=== PATIENT | male | born 1955 | race Caucasian/White ===

== ENCOUNTER 2018-12-09 09:25 | Emergency (ER) | payer SELFPAY ==
[~2018-12-09] VITALS: Ht 185.4 cm; Wt 109.1 kg
[2018-12-09 09:25] VITALS: Ht 185.4 cm; Wt 109.1 kg
== END 2018-12-09 12:00 ==
LOC: EDBD 09:25 → D.ER 09:25
DX: I46.9 Cardiac arrest, cause unspecified (principal); I21.4 Non-ST elevation (NSTEMI) myocardial infarction